=== PATIENT | male | born 1960 | race Caucasian/White ===

== ENCOUNTER 2017-04-13 12:50 | Emergency (ER) | payer OTHER ==
[2017-04-13] MEDS ORDERED: oxyCODONE 5 MG Tab PO ONE (13:28)
[2017-04-13] MEDS ORDERED: Cephalexin 250 MG Cap PO ONE (13:28)
--- NOTE | 2017-04-13 13:39 | EDM.PDOC ---
ED HPI GENERAL MEDICAL PROBLEM - General Chief Complaint: Wound Recheck Stated Complaint: INFECTION/PAIN IN RT THUMB Time Seen by Provider: 04/13/17 13:20 Source of Information: Reports: Patient, RN History Limitations: Reports: No Limitations - History of Present Illness INITIAL COMMENTS - FREE TEXT/NARRATIVE: 56 yo male here for a recheck on a thumb wound. Had surgery back home on this thumb recently for a small retained metallic FB that was a result of a work related injury. [place] and notices increased pain recently. He has not had an infection in this wound at any point to date. Notices some purulent discharge. Onset: Gradual Onset Date: 04/12/17 Duration: Hour(s):, Getting Worse Location: Reports: Upper Extremity, Right Quality: Reports: Ache Severity: Moderate Improves with: Reports: None Worsens with: Reports: Other (? 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 (see below) (none) Right 1-Thumb Pain Score (Numeric/FACES): 10 - Related Data Allergies Allergy/AdvReac Type Severity Reaction Status Date / Time No Known Allergies Allergy Verified 04/13/17 13:16 Home Meds: Home Meds Cephalexin 500 mg PO Q6H #28 capsule 04/13/17 [Rx] oxyCODONE 5 - 10 mg PO Q4H PRN #14 tab 04/13/17 [Rx] Past Medical History Gastrointestinal History: Reports: Cirrhosis, Hepatitis Psychiatric History: Reports: Addiction Hematologic History: Reports: Other (See Below) Other Hematologic History: low platelets - Infectious Disease History Infectious Disease History: Reports: Chicken Pox, Hepatitis C, Mumps - Past Surgical History Neurological Surgical History: Reports: Spinal Fusion Social & Family History - Tobacco Use Smoking Status *Q: Never Smoker - Recreational Drug Use Recreational Drug Use: No ED ROS GENERAL - Review of Systems Review Of Systems: See Below Constitutional: Reports: No Symptoms Musculoskeletal: Reports: Hand Pain (R thumb distally) Skin: Reports: No Symptoms Neurological: Reports: Numbness (in both hands slowly getting worse.) ED EXAM, SKIN/RASH Exam: See Below Exam Limited By: No Limitations General Appearance: Alert, WD/WN, No Apparent Distress Extremities: Other (There is a slightly opened surgical wound on the solorzano aspect of the distal R thumb. No obvious drainage at this time. Distal thumb does look like it may be a little swollen. This area is tender with touch. ). No: Increased Warmth Neurological: Alert, Oriented, CN II-XII Intact, Normal Cognition, No Motor/ Sensory Deficits Psychiatric: Normal Affect, Normal Mood Skin: Warm, Dry, Normal Color, No Rash, Wound/Incision (surgical wound R thumb volar aspect. ) Location, Skin: Upper Extremity, Right Characteristics: Linear Associated features: Tenderness Course - Vital Signs Last Recorded V/S: Last Vital Signs Temp 36.4 C 04/13/17 13:12 Pulse 73 04/13/17 13:12 Resp 16 04/13/17 13:12 BP 133/74 04/13/17 13:12 Pulse Ox 96 04/13/17 13:12 - Orders/Labs/Meds Meds: Medications Discontinued Medications Generic Name Dose Route Start Last Admin Trade Name Freq PRN Reason Stop Dose Admin Cephalexin 1,000 mg 04/13/17 13:28 Keflex PO 04/13/17 13:29 ONETIME ONE Oxycodone HCl 5 mg 04/13/17 13:28 Oxycodone PO 04/13/17 13:29 ONETIME ONE Departure - Departure Time of Disposition: 13:50 Disposition: Home, Self-Care 01 Condition: Fair Clinical Impression: Infection of thumb - Discharge Information Prescriptions: Cephalexin 500 mg PO Q6H #28 capsule oxyCODONE 5 - 10 mg PO Q4H PRN #14 tab PRN Reason: Pain Referrals: PCP,None [Primary Care Provider] - Forms: ED Department Discharge Additional Instructions: Keep thumb clean and elevated. Take cephalexin every 6 hrs. Take oxycodone 1-2 every 4-6 hrs as needed for pain relief. Return home to be rechecked by your provider preethi, recommend heading home tonight so you can be seen in the morning if possible.
== END 2017-04-13 14:00 | disposition home or self-care (01) ==
LOC: JP.ED 12:50
DX: T81.4XXA Infection following a procedure, initial encounter (principal); Z98.890 Other specified postprocedural states
CPT/HCPCS: 99283; A9270